=== PATIENT | female | born 1965 | race African-American/Black ===

== ENCOUNTER 2017-10-26 18:34 | Inpatient (IN) | payer MEDICARE ==
[~2017-10-26] VITALS: Ht 172.7 cm; Wt 94.1 kg
--- NOTE | 2017-10-26 18:34 | NUR ---
PATIENT TO BED 1 BY EMS
[2017-10-26 19:05] VITALS: BP 104/66
--- NOTE | 2017-10-26 19:10 | NUR ---
BIBA FOR SEVERE ABD FROM HOME PT DENIES N/V/D; SKIN IS PINK/WARM/DRY; AAOX4 WITH EVEN AND STEADY GAIT; LUNGS CLEAR BL; HR EVEN AND REGULAR; PT DENIES ANY FEVER, CP, SOB, OR COUGH AT THIS TIME; PATIENT STATES PAIN OF 10/10 AT THIS TIME; VSS; PATIENT POSITIONED FOR COMFORT; HOB ELEVATED; BEDRAILS UP X2; BED DOWN. ER MD MADE AWARE OF PT STATUS.
[2017-10-26] MEDS ORDERED: ACET-5629 PO (19:15)
[2017-10-26] MEDS ORDERED: METF1000 PO (19:15)
[2017-10-26] MEDS ORDERED: NACL 0.9% 1,000 ML IV ONE ×2 (19:50→23:35)
[2017-10-26] MEDS ORDERED: ONDANSETRON 4 MG/2 ML VIAL IVP ONE (19:50)
[2017-10-26] MEDS ORDERED: HYDROmorphone PFS 2 MG/ML SYR IVP ONE ×2 (19:50→23:35)
[2017-10-26 20:26] LABS: BASOPHILS # (AUTO) 0.3 K/uL (0.00-0.22); BASOPHILS % (AUTO) 3.9 % (0.0-2.0); EOSINOPHILS # (AUTO) 0.2 K/uL (0-0.4); EOSINOPHILS % (AUTO) 2.1 % (0.0-4.0); HEMOGLOBIN 11.7 g/dL (12.0-16.0); LYMPHOCYTES # (AUTO) 2.7 K/uL (2.5-16.5); LYMPHOCYTES % (AUTO) 37.3 % (20.5-51.1); MEAN CORPUSCULAR HEMOGLOBIN 27 pg (27-31); MEAN CORPUSCULAR HGB CONC 32 g/dL (33-37); MEAN CORPUSCULAR VOLUME 86 fL (80-94); MONOCYTES # (AUTO) 0.3 K/uL (0.8-1.0); MONOCYTES % (AUTO) 4.5 % (1.7-9.3); NEUTROPHILS # (AUTO) 3.8 K/uL (1.8-7.7); NEUTROPHILS % (AUTO) 52.2 % (42.2-75.2); PLATELET COUNT (AUTO) 204 K/uL (140-450); RED BLOOD CELL COUNT(AUTO) 4.31 MIL/uL (4.20-5.40); RED CELL DISTRIBUTION WIDTH 13.2 % (11.6-13.7); WHITE BLOOD COUNT (AUTO) 7.3 K/uL (4.8-10.8)
[2017-10-26 20:28] LABS: APPEARANCE,URINE CLOUDY (CLEAR); BILIRUBIN,URINE NEGATIVE (NEGATIVE); BLOOD, URINE NEGATIVE (NEGATIVE); COLOR,URINE YELLOW (YELLOW); LEUKOCYTE ESTERASE ,URINE NEGATIVE (NEGATIVE); NITRITE, URINE NEGATIVE (NEGATIVE); PH,URINE 5.5 (5.0-9.0); UGLUCOSE 3+ (NEGATIVE)
[2017-10-26 20:47] LABS: BARBITURATE, URINE NEG. ng/ml (NEG <=200); BENZODIAZEPINE, URINE NEG. ng/mL (NEG <=200); CANNABINOID, URINE NEG. ng/mL (NEG <=50); COCAINE, URINE NEG. ng/mL (NEG <=300); OPIATE, URINE NEG. ng/mL (NEG <=2000); PHENCYCLIDINE SCREEN,URINE NEG. ng/mL (NEG <=25)
[2017-10-26 20:52] LABS: ALBUMIN 3.1 g/dL (3.4-5.0); ANION GAP 13.9 (8-16); ASPARTATE AMINOTRANSFERASE 19 U/L (15-37); CARBON DIOXIDE 24.8 mmol/L (21-32); CHLORIDE 109 mmol/L (98-107); CREATININE 0.7 mg/dL (0.6-1.3); GFR ARICAN-AMERICAN 113 mL/min (>90); GLUCOSE 221 mg/dL (74-106); LIPASE 45 U/L (73-393); POTASSIUM 3.7 mmol/L (3.5-5.1); SODIUM SERUM 144 mmol/L (136-145); TOTAL BILIRUBIN 0.2 mg/dL (0.0-1.0); UREA NITROGEN, BLOOD 13 mg/dL (7-18)
[2017-10-26 21:17] LABS: RBC,URINE 0-5 (RARE) /HPF (0-5); WBC,URINE TOO MANY TO COUNT /HPF (0-5)
--- NOTE | 2017-10-26 21:30 | NUR ---
Patient appears to be resting comfortably in bed. Vital Signs within normal limits. Respirations even and unlabored.
--- NOTE | 2017-10-26 23:00 | NUR ---
Patient appears to be resting comfortably in bed. Vital Signs within normal limits. Respirations even and unlabored.
[2017-10-26] MEDS ORDERED: cefTRIAXone 1,000 MG VIAL ONE (23:42)
[2017-10-27] MEDS ORDERED: NACL 0.9% 1,000 ML IV SCH (00:08)
[2017-10-27] MEDS ORDERED: ACETAMINOPHEN 325 MG TAB PO PRN (00:10)
[2017-10-27] MEDS ORDERED: ONDANSETRON 4 MG/2 ML VIAL IVP PRN (00:10)
[2017-10-27] MEDS ORDERED: HYDROcodone/APAP 7.5/325 MG 1 TAB PO PRN (00:10)
--- NOTE | 2017-10-27 00:10 | NUR ---
# 16 FR NG tube placed to LEFT nare. Placement checked by auscultation of instilled air into stomach and aspiration of gastric contents. Tubing taped in place to prevent dislodging. Patient tolerated WELL.
[2017-10-27] MEDS ORDERED: MORPHINE SULFATE 2 MG/ML SYR IVP PRN (00:15)
[2017-10-27] MEDS ORDERED: INSULIN LISPRO SLIDING SCALE 100 UNITS/ML VIAL SUBQ PRN (00:20)
[2017-10-27] MEDS: DEXT 5% /NACL 0.9% 1,000 ML IV SCH ×4 (00:20→20:20)
[2017-10-27] MEDS ORDERED: DEXTROSE 50% 50 ML SYR IVP PRN (00:20)
--- NOTE | 2017-10-27 00:40 | NUR ---
Patient will be admitted to care of DR MOTA. Admited to TELE. Will go to [id number]. Belongings list completed. Report to JAMES HOSKINS.
[2017-10-27 01:00] VITALS: BP 124/82
--- NOTE | 2017-10-27 01:00 | NUR ---
PATIENT ADMITTED TO THE UNIT FROM ER. PATIENT AWAKE, ALERT AND ORIENTED. AMBULATORY. COMPLAINS OF 10/10 ABDOMINAL PAIN. NGT PRESENT IN THE LEFT NARE. PLACEMENT CONFIRMED THROUGH X-RAY. PLAN OF CARE DISCUSSED WITH PATIENT. PATIENT VERBALIZED UNDERSTANDING. BED IN LOWEST POSITION, SIDE RAILS UP AND CALL LIGHT WITHIN REACH WILL CONTINUE TO MONITOR.
--- NOTE | 2017-10-27 01:05 | NUR ---
PATIENT COMPLAINS THAT NG TUBE IS BOTHERING HER AND SHE WANTS TO PULL IT OUT. DR. CROSS PRESENT AT BEDSIDE. EDUCATED PATIENT OF IMPORTANCE OF HAVING AN NG TUBE. PATIENT VERBALIZED UNDERSTANDING BUT REINFORCEMENT IS NEEDED.
[2017-10-27] MEDS ORDERED: INSU100S22 SUBQ (01:29)
[2017-10-27] MEDS ORDERED: SIMV10TA1 PO (01:29)
[2017-10-27] MEDS ORDERED: GLIP10TA3 PO (01:29)
[2017-10-27] MEDS ORDERED: HYDROmorphone 1 MG/ML AMP IVP PRN (01:35)
[2017-10-27 01:43] LABS: CHOL/HDL RATIO 2.3 (1-4.5); FREE T4 (FREE THYROXINE) 0.76 ng/dL (0.76-1.46); MAGNESIUM 1.7 mg/dL (1.8-2.4); PHOSPHORUS 3.6 mg/dL (2.5-4.9); THYROID STIMULATING HORMONE 2.45 uIU/mL (0.34-3.74)
[2017-10-27] MEDS: HYDROmorphone PFS 2 MG/ML SYR IVP PRN ×6 (02:22→23:25)
--- NOTE | 2017-10-27 03:00 | NUR ---
PATIENT IS ASLEEP. NO SIGNS AND SYMPTOMS OF DISTRESS NOTED. BED IN LOWEST POSITION, SIDE RAILS UP AND CALL LIGHT WITHIN REACH. WILL CONTINUE TO MONITOR.
[2017-10-27 04:00] VITALS: BP 105/58
--- NOTE | 2017-10-27 04:00 | NUR ---
PATIENT HAS SEVERAL HEALED BERRIOS, AND SURGICAL SCARS FROM SURGERY. SHE REFUSED PICTURES FOR DOCUMENTATION OF WOUNDS.
--- NOTE | 2017-10-27 06:28 | NUR ---
PATIENT KEEPS SAYING THAT SHE WANTS TO TAKE OUT THE NG TUBE, AND THAT SHE DOESN'T WANT IT ANYMORE. EDUCATED HER ON THE IMPORTANCE OF THE NG TUBE AND ITS PURPOSE FOR HER TREATMENT. REINFORCEMENT NEEDED.
[2017-10-27] MEDS: BLOOD GLUCOSE MONITORING 1 DEV DEV FS SCH ×4 (06:36→20:09)
[2017-10-27 07:01] LABS: EOSINOPHILS # (AUTO) 0.1 K/uL (0-0.4); HEMOGLOBIN 12.2 g/dL (12.0-16.0); MONOCYTES # (AUTO) 0.4 K/uL (0.8-1.0); NEUTROPHILS # (AUTO) 5.5 K/uL (1.8-7.7)
[2017-10-27 07:02] LABS: BASOPHILS # (AUTO) 0.1 K/uL (0.00-0.22); BASOPHILS % (AUTO) 1.6 % (0.0-2.0); LYMPHOCYTES % (AUTO) 24.9 % (20.5-51.1); MEAN CORPUSCULAR HEMOGLOBIN 29 pg (27-31); MEAN CORPUSCULAR HGB CONC 34 g/dL (33-37); MEAN CORPUSCULAR VOLUME 86 fL (80-94); MONOCYTES % (AUTO) 5.2 % (1.7-9.3); NEUTROPHILS % (AUTO) 67.3 % (42.2-75.2); PLATELET COUNT (AUTO) 202 K/uL (140-450); RED BLOOD CELL COUNT(AUTO) 4.22 MIL/uL (4.20-5.40); WHITE BLOOD COUNT (AUTO) 8.1 K/uL (4.8-10.8)
--- NOTE | 2017-10-27 07:10 | NUR ---
RECEIVED PATIENT REPORT AT BEDSIDE. PATIENT AWAKE AND ORIENTED. PATIENT ON ROOM AIR. NO S/S OF DISTRESS OR SOB NOTED. PATIENT REPORTS OF ABD PAIN. PATIENT MEDICATED BY [employer] CAPTURE POWER PLANT MANAGER NURSE. WILL CONTINUE TO MONITOR. NGT IN PLACE IN THE LEFT NARES ON LOW INTERMITTENT SUCTION. IV LINE NOTED TO THE LEFT AC WITH IVF INFUSING WELL. PATIENT ON TELE MONITORING. BED LOWERED WITH CALL LIGHT WITHIN REACH. WILL CONTINUE TO MONITOR
--- NOTE | 2017-10-27 07:15 | NUR ---
PATIENT REPORT GIVEN TO MORNING NURSE AT BEDTIME. PATIENT IS IN STABLE CONDITION
[2017-10-27 07:28] LABS: CARBON DIOXIDE 28.7 mmol/L (21-32); CREATININE 0.7 mg/dL (0.6-1.3); POTASSIUM 3.7 mmol/L (3.5-5.1)
[2017-10-27 07:38] LABS: MAGNESIUM 1.5 mg/dL (1.8-2.4); PHOSPHORUS 4.2 mg/dL (2.5-4.9)
[2017-10-27 07:49] VITALS: BP 104/73
--- NOTE | 2017-10-27 08:25 | NUR ---
PATIENT HAS BEEN SCREENED AND CATEGORIZED HIGH NUTRITION RISK. PATIENT WILL BE SEEN WITHIN 1-2 DAYS OF ADMISSION. 10/27/17-10/28/[address]
[2017-10-27] MEDS ORDERED: BENZOCAINE 20% 57 GM CAN MC PRN (08:40)
[2017-10-27] MEDS: LACTOBACILLUS RHAMNOSUS GG 1 EACH CAP PO SCH (09:00)
[2017-10-27] MEDS: SIMVASTATIN 10 MG TAB PO SCH (09:00)
[2017-10-27] MEDS: DOCUSATE SODIUM 100 MG GELCAP PO SCH ×2 (09:00→20:23)
[2017-10-27] MEDS ORDERED: MAG SULF 2000 MG/WATER PREMIX 100 ML IV SCH (10:24)
--- NOTE | 2017-10-27 11:13 | NUR ---
FAXED INITIAL REVIEW TO [facility] [phone] PHONE OR [phone]
[2017-10-27 12:00] VITALS: BP 111/78
--- NOTE | 2017-10-27 15:00 | NUR ---
SMALL BOWEL FOLLOW THROUGH INITIATED
--- NOTE | 2017-10-27 15:23 | NUR ---
10/27/2017 RD INITIAL ASSESSMENT COMPLETED PLEASE REFER TO NUTRITION ASSESSMENT UNDER CARE ACTIVITY FOR ESTIMATED NUTRITIONAL NEEDS. PT TO REMAIN NPO UNTIL MEDICALLY APPROPRIATE TO ADVANCE ADVANCE DIET TOLERATED RD TO FOLLOW-UP IN 2-3 DAYS PATIENT IS HIGH RISK. JORGE JACOB, RD
[2017-10-27 16:00] VITALS: BP 118/82
--- NOTE | 2017-10-27 16:35 | NUR ---
PATIENT SEEN BY DR KEYES
--- NOTE | 2017-10-27 18:00 | NUR ---
RECEIVED ORDER FOR PATIENT TO GO TO HIGHER LEVEL OF CARE, WHERE SHE HAD THE BARIATRIC SURGERY IN SEPTEMBER. I CALLED MO AT [facility] AND SHE SAID SHE WOULD FIND OUT WHICH DOCTOR DID THE SURGERY AND AT WHAT HOSPITAL AND SHE WOULD CALL ME BACK. I CALLED BACK, AND LEFT 2 MESSAGES. NO CALL BACK FROM MO. I INFORMED DR. KEYES.
--- NOTE | 2017-10-27 18:52 | NUR ---
PATIENT PULLED OUT HER NGT DESPITE BEING WARNED OF POTENTIAL COMPLICATIONS THAT MAY ARISE. DR CROSS AWARE
--- NOTE | 2017-10-27 19:24 | NUR ---
PATIENT REPORT GIVEN AT BEDSIDE. PATIENT ENDORSED IN STABLE CONDITION
--- NOTE | 2017-10-27 19:30 | NUR ---
RECEIVED PT AWAKE COMPLAINING OF ABDOMINAL PAIN, VITAL SIGNS STABLE, MEDICATED PRN WITH DILAUDID IVP, IVF INFUSING WELL, MAINTAINED ON NPO, PT WANTS DR TO COME IN AND TALKED TO HER REGARDING HER DIAGNOSIS AND WANTS TO KNOW THE SPECIFIC AREA OF OBSTRUCTION, WILL LET DR CROSS KNOW ABOUT PT'S REQUEST, CALL LIGHT WITHIN REACH, FAMILY MEMBER AT BEDSIDE.
[2017-10-27 20:00] VITALS: BP 117/74
[2017-10-27] MEDS: PANTOPRAZOLE 40 MG INJ VIAL IVP SCH (20:18)
--- NOTE | 2017-10-27 20:20 | NUR ---
BLOOD SUGAR CHECKED WITH 75 RESULT, DR CROSS MADE AWARE OF PT'S REQUEST AND BLOOD SUGAR RESULT, WILL HOLD DUE LANTUS INSULIN, DUE MEDS GIVEN WITH TEACHING PROVIDED, PT SAID SHES VERY HUNGRY AND REQUESTING FOR CRISELDA CRACKERS, REINFORCED NPO STATUS, ALL NEEDS ATTENDED.
[2017-10-27] MEDS ORDERED: INSULIN LANTUS 100 UNITS/ML 10 ML VIAL SUBQ SCH (21:00)
--- NOTE | 2017-10-27 21:32 | NUR ---
PT REQUESTING FOR RESULT OF THE SBFT DONE TODAY, TALKED TO DR CROSS AND SAID THAT'S FINE, COPY OF SBFT PROVIDED TO PT.
[2017-10-27] MEDS ORDERED: ZOLPIDEM 5 MG TAB PO PRN (22:45)
--- NOTE | 2017-10-27 23:30 | NUR ---
PT COMPLAINING OF ABDOMINAL PAIN, VITAL SIGNS STABLE, MEDICATED PRN WITH DILAUDID IVP, CONTINUE TO MONITOR CLOSELY.
[2017-10-28] VITALS (7 sets, daily range): BP systolic 104–128; BP diastolic 63–84
[2017-10-28] MEDS: DEXT 5% /NACL 0.9% 1,000 ML IV SCH ×2 (02:49→09:40)
--- NOTE | 2017-10-28 03:10 | NUR ---
PT AMBULATED TO WITH STEADY GAIT, VOIDED FREELY, PT BACK TO BED FEELS LIKE HER SUGAR IS LOW, BLOOD SUGAR CHECKED WITH 78 RESULT, CRANBERRY JUICE AND JELLO PROVIDED, PAIN MEDICATION NOT YET DUE.
--- NOTE | 2017-10-28 03:15 | NUR ---
ENDORSE TO JAMES BERMAN FOR CONTINUITY OF CARE.
--- NOTE | 2017-10-28 03:20 | NUR ---
RECEIVED REPORT FROM DAMON, PATIENT IS SITTING IN BED, NO S/S OF DISTRESS NOTED, RESPIRATION EVEN AND UNLABORED, CALL IV PATENT AND INTACT, INFUSING D5 NS AT 150ML/HR, CALL LIGHT WITHIN REACH, SAFETY MEASURE ENSURED, WILL CONTINUE TO MONITOR.
[2017-10-28] MEDS: HYDROmorphone PFS 2 MG/ML SYR IVP PRN ×3 (03:39→13:10)
--- NOTE | 2017-10-28 03:45 | NUR ---
PATIENT CALLED AND STATED, PAIN 8/10. UPON ASSESSMENT, NO S/S OF DISTRESS NOTED, BP 106/71, HR 83, PAIN MEDICATION GIVEN ORDERED, CALL LIGHT WITHIN REACH, SAFETY MEASURE ENSURED, WILL CONTINUE TO MONITOR.
--- NOTE | 2017-10-28 05:18 | NUR ---
PATIENT IS SLEEPING, NO S/S OF DISTRESS NOTED, RESPIRATION EVEN AND UNLABORED, CALL LIGHT WITHIN REACH, SAFETY MEASURE ENSURED, WILL CONTINUE TO MONITOR.
[2017-10-28] MEDS: BLOOD GLUCOSE MONITORING 1 DEV DEV FS SCH ×2 (06:38→11:30)
--- NOTE | 2017-10-28 07:22 | NUR ---
ENDORSED PLAN OF CARE TO DAY SHIFT NURSE, PATIENT IS IN STABLE CONDITION.
--- NOTE | 2017-10-28 07:25 | NUR ---
RECEIVED REPORT FROM ALGORITHM DEVELOPER. PATIENT IS RESTING IN BED. AOX4. AMBULATORY. IV ON THE RIGHT HAND AND ON THE LEFT AC. PATENT AND INTACT. FLUSHING WELL. NO S/S OF RESPIRATORY DISTRESS OR DISCOMFORT NOTED. DISCUSSED PLAN OF CARE WITH PATIENT. PT VERBALIZED UNDERSTANDING. CALL LIGHT IS WITHIN REACH. WILL CONTINUE TO MONITOR.
[2017-10-28 07:37] LABS: BASOPHILS # (AUTO) 0.2 K/uL (0.00-0.22); BASOPHILS % (AUTO) 4.7 % (0.0-2.0); EOSINOPHILS # (AUTO) 0.1 K/uL (0-0.4); EOSINOPHILS % (AUTO) 3.4 % (0.0-4.0); HEMATOCRIT 35.3 % (36-48); HEMOGLOBIN 11.6 g/dL (12.0-16.0); LYMPHOCYTES # (AUTO) 1.9 K/uL (2.5-16.5); LYMPHOCYTES % (AUTO) 44.7 % (20.5-51.1); MEAN CORPUSCULAR HEMOGLOBIN 28 pg (27-31); MEAN CORPUSCULAR HGB CONC 33 g/dL (33-37); MEAN CORPUSCULAR VOLUME 86 fL (80-94); MONOCYTES # (AUTO) 0.3 K/uL (0.8-1.0); MONOCYTES % (AUTO) 6.2 % (1.7-9.3); NEUTROPHILS # (AUTO) 1.7 K/uL (1.8-7.7); PLATELET COUNT (AUTO) 195 K/uL (140-450); RED BLOOD CELL COUNT(AUTO) 4.09 MIL/uL (4.20-5.40); RED CELL DISTRIBUTION WIDTH 13.2 % (11.6-13.7); WHITE BLOOD COUNT (AUTO) 4.2 K/uL (4.8-10.8)
[2017-10-28 07:52] LABS: ANION GAP 10.8 (8-16); CARBON DIOXIDE 27.8 mmol/L (21-32); CREATININE 0.6 mg/dL (0.6-1.3); POTASSIUM 3.6 mmol/L (3.5-5.1)
[2017-10-28] MEDS: DOCUSATE SODIUM 100 MG GELCAP PO SCH (08:39)
[2017-10-28] MEDS: LACTOBACILLUS RHAMNOSUS GG 1 EACH CAP PO SCH (08:40)
[2017-10-28] MEDS: SIMVASTATIN 10 MG TAB PO SCH (08:40)
[2017-10-28] MEDS: PANTOPRAZOLE 40 MG INJ VIAL IVP SCH (08:43)
--- NOTE | 2017-10-28 17:32 | NUR ---
PATIENT DISCHARGE INSTRUCTIONS GIVEN. IV D/C. CATHETER TIP INTACT. ID WRISTBANDS REMOVED. PATIENT STABLE UPON DISCHARGE. ACCOMPANIED BY AND DAUGHTER.
[2017-10-31 06:16] LABS: FOLIC ACID 19.3 ng/mL (>3.0)
== END 2017-10-28 17:32 | disposition home or self-care (01) | DRG 247 ==
LOC: MED 18:34 → MTU 10-27 00:11
PROVIDERS: ADMIT Family Medicine Sports Medicine; ATTEND Family Medicine Sports Medicine
DX: K56.600 Partial intestinal obstruction, unspecified as to cause (principal); N17.0 Acute kidney failure with tubular necrosis; D68.59 Other primary thrombophilia; E11.65 Type 2 diabetes mellitus with hyperglycemia; E44.1 Mild protein-calorie malnutrition; I10 Essential (primary) hypertension; G89.29 Other chronic pain; E78.5 Hyperlipidemia, unspecified; N39.0 Urinary tract infection, site not specified; R80.9 Proteinuria, unspecified; D64.9 Anemia, unspecified; Z98.84 Bariatric surgery status; Z68.31 Body mass index [BMI] 31.0-31.9, adult
CPT/HCPCS: 36415; 71045; 74250; 80048; 80053; 80305; 81001; 82607; 82728; 82746; 82948; 83036; 83540; 83605; 83690; 83735; 83880; 84100; 84439; 84443; 84484; 85025; 85045; 85610; 85730; 87081; 87086; 93005; 93925; 93970; 96361; 96365; 96375; 96376; 99285; C9113; G0482; J0696; J1170; J1815; J2270; J2405; J3475; J7030; J7042; J7060; Q0092; Q9967

== ENCOUNTER 2018-03-14 12:05 | Emergency (ER) | payer MEDICAID, MEDICARE ==
[~2018-03-14] VITALS: Ht 172.7 cm; Wt 86.6 kg
[~2018-03-14 12:05] MED LIST: ACET-5629 PO; GLIP10TA3 PO; INSU100S22 SUBQ; METF1000 PO; SIMV10TA1 PO
[2018-03-14 12:09] VITALS: BP 119/82
--- NOTE | 2018-03-14 12:20 | NUR ---
PT AMBULATES TO BED 6
--- NOTE | 2018-03-14 12:21 | NUR ---
53/F BIB C/O VAGINAL PAIN X 3 WKS, N/V, CONSTIPATION, ABDOMINAL PAIN SINCE SHE HAD OLI CAVANAUGH ON 11/10/2017. HX; DM, GERD, TUMMY TUCK, NEUROPATHY, CHRONIC PAIN. AAOX4 WITH EVEN AND STEADY GAIT; LUNGS CLEAR BL. PATIENT STATES PAIN OF 8/10 AT THIS TIME. PATIENT POSITIONED FOR COMFORT; HOB ELEVATED; BEDRAILS UP X2; BED DOWN. TONYA CHIU MADE AWARE OF PT STATUS. Addendum: 03/14/18 at 1302 by [email or web address] PT STATED BM YESTERDAY; HARD STOOL.
--- NOTE | 2018-03-14 13:38 | NUR ---
DR WARREN EVALUATING AT BEDSIDE
[2018-03-14] MEDS ORDERED: KETOROLAC 60 MG/2 ML VIAL IM ONE ×3 (13:50→14:05)
[2018-03-14] MEDS ORDERED: KETOROLAC 30 MG/ML VIAL IVP ONE (13:55)
--- NOTE | 2018-03-14 14:06 | NUR ---
PT HAS HARD STICK. DC IV INSERTED & TORADOL [address] WARREN ORDERED PER ORAL. TORADOL [address] WARREN ORDERED PER ORAL.
--- NOTE | 2018-03-14 14:09 | NUR ---
LAB AT BEDSIDE.
[2018-03-14 14:19] LABS: BASOPHILS % (AUTO) 0.3 % (0.0-2.0); EOSINOPHILS # (AUTO) 0.1 K/uL (0-0.4); EOSINOPHILS % (AUTO) 2.5 % (0.0-4.0); HEMATOCRIT 41.9 % (36-48); HEMOGLOBIN 13.2 g/dL (12.0-16.0); LYMPHOCYTES # (AUTO) 2.7 K/uL (2.5-16.5); LYMPHOCYTES % (AUTO) 46.6 % (20.5-51.1); MEAN CORPUSCULAR HEMOGLOBIN 27 pg (27-31); MEAN CORPUSCULAR HGB CONC 32 g/dL (33-37); MEAN CORPUSCULAR VOLUME 85.9 fL (80-94); MONOCYTES # (AUTO) 0.3 K/uL (0.8-1.0); MONOCYTES % (AUTO) 4.6 % (1.7-9.3); NEUTROPHILS # (AUTO) 2.6 K/uL (1.8-7.7); PLATELET COUNT (AUTO) 204 K/uL (140-450); RED BLOOD CELL COUNT(AUTO) 4.87 MIL/uL (4.20-5.40); RED CELL DISTRIBUTION WIDTH 15.8 % (11.6-13.7); WHITE BLOOD COUNT (AUTO) 5.7 K/uL (4.8-10.8)
--- NOTE | 2018-03-14 14:22 | NUR ---
BACK FROM CT
[2018-03-14 14:32] LABS: APPEARANCE,URINE CLEAR (CLEAR); BLOOD, URINE NEGATIVE (NEGATIVE); COLOR,URINE YELLOW (YELLOW); LEUKOCYTE ESTERASE ,URINE NEGATIVE (NEGATIVE); NITRITE, URINE NEGATIVE (NEGATIVE); PH,URINE 5.5 (5.0-9.0); UGLUCOSE 3+ (NEGATIVE)
[2018-03-14 14:34] LABS: ALBUMIN 3.9 g/dL (3.4-5.0); ANION GAP 10.6 (8-16); CARBON DIOXIDE 28.7 mmol/L (21-32); CREATININE 0.7 mg/dL (0.6-1.3); POTASSIUM 4.3 mmol/L (3.5-5.1); TOTAL BILIRUBIN 0.4 mg/dL (0.0-1.0)
[2018-03-14 14:35] LABS: BILIRUBIN,URINE NEGATIVE (NEGATIVE)
--- NOTE | 2018-03-14 15:11 | NUR ---
PT STATED PAIN 10 AT THIS TIME
[2018-03-14 16:45] VITALS: BP 105/71
--- NOTE | 2018-03-14 16:45 | NUR ---
Patient discharged with v/s stable BY DR WARREN. Written and verbal after care instructions given and explained. Patient verbalized understanding. Ambulatory with steady gait. All questions addressed prior to discharge. Advised to follow up with PMD.
== END 2018-03-14 16:45 | disposition left against medical advice (07) ==
LOC: MED 12:05
DX: R10.13 Epigastric pain (principal); R11.2 Nausea with vomiting, unspecified; R30.9 Painful micturition, unspecified; E11.9 Type 2 diabetes mellitus without complications; K21.9 Gastro-esophageal reflux disease without esophagitis; Z79.899 Other long term (current) drug therapy; Z79.84 Long term (current) use of oral hypoglycemic drugs
CPT/HCPCS: 36415; 74176; 80053; 81003; 81025; 83690; 85025; 99285; J1885

== ENCOUNTER 2018-06-28 18:59 | Emergency (ER) | payer MEDICAID, MEDICARE ==
[~2018-06-28] VITALS: Ht 172.7 cm; Wt 86.6 kg
--- NOTE | 2018-06-28 19:00 | NUR ---
PT BIBA BLS TAKEN TO BED 3
[2018-06-28 19:04] VITALS: BP 149/93
--- NOTE | 2018-06-28 19:30 | NUR ---
Dr. Cox evaluating patient at bedside.
--- NOTE | 2018-06-28 19:31 | NUR ---
PATIENT PRESENTS TO ED WITH ABDOMINAL PAIN SINCE 11/10/17. PT STATES WAS SEEN AT [facility].PATIENT STATES +N/V/D; SKIN IS PINK/WARM/DRY; AAOX4 WITH EVEN AND STEADY GAIT; LUNGS CLEAR BL; HR EVEN AND REGULAR; PT DENIES ANY FEVER, CP, SOB, OR COUGH AT THIS TIME; PATIENT STATES PAIN OF 7/10 AT THIS TIME; VSS; PATIENT POSITIONED FOR COMFORT; HOB ELEVATED; BEDRAILS UP X2; BED DOWN. ER MD MADE AWARE OF PT STATUS.
[2018-06-28] MEDS ORDERED: ONDANSETRON 4 MG/2 ML VIAL IVP ONE (19:50)
[2018-06-28] MEDS ORDERED: NACL 0.9% 1,000 ML IV ONE (19:50)
[2018-06-28] MEDS ORDERED: fentaNYL 0.05 MG/ML VIAL IVP ONE (19:50)
[2018-06-28 20:18] LABS: BASOPHILS % (AUTO) 0.3 % (0.0-2.0); EOSINOPHILS # (AUTO) 0.2 K/uL (0-0.4); EOSINOPHILS % (AUTO) 2.5 % (0.0-4.0); HEMATOCRIT 40.6 % (36-48); HEMOGLOBIN 13.2 g/dL (12.0-16.0); LYMPHOCYTES % (AUTO) 43.3 % (20.5-51.1); MEAN CORPUSCULAR HEMOGLOBIN 28 pg (27-31); MEAN CORPUSCULAR HGB CONC 33 g/dL (33-37); MEAN CORPUSCULAR VOLUME 87.2 fL (80-94); MONOCYTES # (AUTO) 0.3 K/uL (0.8-1.0); MONOCYTES % (AUTO) 4.3 % (1.7-9.3); NEUTROPHILS # (AUTO) 3.4 K/uL (1.8-7.7); NEUTROPHILS % (AUTO) 49.6 % (42.2-75.2); PLATELET COUNT (AUTO) 222 K/uL (140-450); RED BLOOD CELL COUNT(AUTO) 4.66 MIL/uL (4.20-5.40); RED CELL DISTRIBUTION WIDTH 13.1 % (11.6-13.7); WHITE BLOOD COUNT (AUTO) 6.8 K/uL (4.8-10.8)
--- NOTE | 2018-06-28 20:36 | NUR ---
PT RETURN FROM CT
[2018-06-28 21:01] LABS: ALBUMIN 4.2 g/dL (3.4-5.0); ANION GAP 11.5 (8-16); CARBON DIOXIDE 29.1 mmol/L (21-32); CREATININE 0.6 mg/dL (0.6-1.3); POTASSIUM 3.6 mmol/L (3.5-5.1); TOTAL BILIRUBIN 0.3 mg/dL (0.0-1.0)
[2018-06-28 21:55] VITALS: BP 138/91
--- NOTE | 2018-06-28 21:55 | NUR ---
Patient discharged with v/s stable. Written and verbal after care instructions given and explained. Patient alert, oriented and verbalized understanding of instructions. Ambulatory with steady gait. All questions addressed prior to discharge. ID band removed. Patient advised to follow up with PMD. Rx of ZOFRAN AND TRAMADOL given. Patient educated on indication of medication including possible reaction and side effects. Opportunity to ask questions provided and answered.
[2018-06-28 22:15] LABS: PROTHROMBIN TIME 9.3 secs (10.8-13.4)
== END 2018-06-28 21:55 | disposition home or self-care (01) ==
LOC: MED 18:59
DX: R10.9 Unspecified abdominal pain (principal); R11.2 Nausea with vomiting, unspecified; R19.7 Diarrhea, unspecified; R06.02 Shortness of breath; E11.9 Type 2 diabetes mellitus without complications; K21.9 Gastro-esophageal reflux disease without esophagitis; Z79.899 Other long term (current) drug therapy; Z79.84 Long term (current) use of oral hypoglycemic drugs
CPT/HCPCS: 36415; 74176; 80053; 83690; 85025; 85610; 85730; 96361; 96374; 96375; 99285; J2405; J3010; J7030

== ENCOUNTER 2020-02-13 18:36 | Emergency (ER) | payer BC, MEDICARE ==
[~2020-02-13] VITALS: Ht 165.1 cm; Wt 79.4 kg
--- NOTE | 2020-02-13 18:36 | NUR ---
Patient BIBA BLS, transferred to bed 4. RN evaluating patient at bedside.
[2020-02-13 18:42] VITALS: BP 118/84
--- NOTE | 2020-02-13 18:58 | NUR ---
LAB AT BEDSIDE
--- NOTE | 2020-02-13 19:15 | NUR ---
PT CAME IN TO ER WITH C/O ABDOMINAL PAIN. PT STATED SHE HAS CHRONIC PAIN DUE TO HAVING A TUMMY TUCK IN 2018. PT IS ALERT AND ABLE TO ANSWER QUESTIONS APPROPRIATELY. PT PAIN LEVEL IS 7/10 AT THIS TIME. SAFETY MEASURES IN PLACE. WILL CONTINUE TO MONITOR.
--- NOTE | 2020-02-13 19:15 | NUR ---
PT IS REFUSING TO URINATE AT THIS TIME. ERMD MADE AWARE
[2020-02-13 19:16] LABS: BASOPHILS % (AUTO) 0.4 % (0.0-2.0); EOSINOPHILS # (AUTO) 0.1 K/uL (0-0.4); HEMATOCRIT 36.2 % (36-48); HEMOGLOBIN 11.8 g/dL (12.0-16.0); LYMPHOCYTES # (AUTO) 2.5 K/uL (2.5-16.5); LYMPHOCYTES % (AUTO) 37.8 % (20.5-51.1); MEAN CORPUSCULAR HEMOGLOBIN 30 pg (27-31); MEAN CORPUSCULAR HGB CONC 32 g/dL (33-37); MEAN CORPUSCULAR VOLUME 91.9 fL (80-94); MONOCYTES # (AUTO) 0.5 K/uL (0.8-1.0); MONOCYTES % (AUTO) 8.2 % (1.7-9.3); NEUTROPHILS # (AUTO) 3.4 K/uL (1.8-7.7); NEUTROPHILS % (AUTO) 51.6 % (42.2-75.2); PLATELET COUNT (AUTO) 285 K/uL (140-450); RED BLOOD CELL COUNT(AUTO) 3.94 MIL/uL (4.20-5.40); RED CELL DISTRIBUTION WIDTH 15.5 % (11.6-13.7); WHITE BLOOD COUNT (AUTO) 6.6 K/uL (4.8-10.8)
--- NOTE | 2020-02-13 19:25 | NUR ---
XRAY AT BEDSIDE
[2020-02-13 19:30] LABS: ACETAMINOPHEN 15.2 ug/ml (10-30); ALBUMIN 3.5 g/dL (3.4-5.0); ANION GAP 16.7 (8-16); CARBON DIOXIDE 22.4 mmol/L (21-32); CREATININE 0.9 mg/dL (0.6-1.3); POTASSIUM 3.1 mmol/L (3.5-5.1); SALICYLATE 3.7 mg/dL (2.8-20.0); TOTAL BILIRUBIN 0.4 mg/dL (0.0-1.0)
--- NOTE | 2020-02-13 20:02 | NUR ---
PT REFUSED MEDICATION, TYLENOLM IBUPROFEN AND OR TORADOL. PT STATED SHE TOOK MEDICATION PRIOR TO COMING IN TO ER. PT IS DROWSY. PT STATED SHE HAS A RIDE HOME.
--- NOTE | 2020-02-13 20:03 | NUR ---
PT REFUSED TO GIVE A U/A SPECIMEN. ANTONETTED MADE AWARE.
[2020-02-13 20:14] VITALS: BP 118/84
--- NOTE | 2020-02-13 20:14 | NUR ---
Patient discharged with v/s stable. Written and verbal after care instructions given and explained. Patient verbalized understanding. Ambulatory with steady gait. All questions addressed prior to discharge. Advised to follow up with PMD. PT STATED SHE HAS A RIDE HOME. PT INSTRCUTED TO FOLLOW UP WITH PAIN MANAGMENT.
--- NOTE | 2020-02-13 20:30 | NUR ---
PT FAMILY REFUSED TO PICK HER UP, PT RECIEVED A TAXI VOUCHER
== END 2020-02-13 20:04 | disposition home or self-care (01) ==
LOC: MED 18:36
DX: R10.9 Unspecified abdominal pain (principal); E11.9 Type 2 diabetes mellitus without complications; K21.9 Gastro-esophageal reflux disease without esophagitis; Z79.899 Other long term (current) drug therapy; Z76.5 Malingerer [conscious simulation]
CPT/HCPCS: 36415; 74022; 80053; 85025; 93005; 99285; G0480; G0482

== ENCOUNTER 2021-05-03 22:36 | Emergency (ER) | payer BC ==
[~2021-05-03] VITALS: Ht 165.1 cm; Wt 70.3 kg
[2021-05-03 22:36] VITALS: BP 93/56
[2021-05-03] MEDS ORDERED: MIDAZOLAM 2 MG/2 ML VIAL IM ONE (22:45)
[2021-05-03] MEDS ORDERED: HALOPERIDOL IM 5 MG/ML VIAL IM ONE (22:45)
[2021-05-03] MEDS ORDERED: HALOPERIDOL IM 5 MG/ML VIAL ONE (22:45)
[2021-05-03] MEDS ORDERED: MIDAZOLAM 5 MG/1 ML VIAL ONE (22:47)
[2021-05-03 23:25] LABS: BASOPHILS % (AUTO) 0.3 % (0.0-2.0); EOSINOPHILS % (AUTO) 0.9 % (0.0-4.0); HEMATOCRIT 35.2 % (36-48); HEMOGLOBIN 11.6 g/dL (12.0-16.0); LYMPHOCYTES # (AUTO) 2.1 K/uL (2.5-16.5); LYMPHOCYTES % (AUTO) 40.5 % (20.5-51.1); MEAN CORPUSCULAR HEMOGLOBIN 30 pg (27-31); MEAN CORPUSCULAR HGB CONC 33 g/dL (33-37); MEAN CORPUSCULAR VOLUME 92.3 fL (80-94); MONOCYTES # (AUTO) 0.3 K/uL (0.8-1.0); MONOCYTES % (AUTO) 5.4 % (1.7-9.3); NEUTROPHILS # (AUTO) 2.8 K/uL (1.8-7.7); NEUTROPHILS % (AUTO) 52.9 % (42.2-75.2); PLATELET COUNT (AUTO) 279 K/uL (140-450); RED BLOOD CELL COUNT(AUTO) 3.81 MIL/uL (4.20-5.40); RED CELL DISTRIBUTION WIDTH 16.6 % (11.6-13.7); WHITE BLOOD COUNT (AUTO) 5.2 K/uL (4.8-10.8)
[2021-05-03 23:43] LABS: ALBUMIN 3.3 g/dL (3.4-5.0); ANION GAP 14.3 (8-16); ASPARTATE AMINOTRANSFERASE 56 U/L (15-37); CARBON DIOXIDE 24.8 mmol/L (21-32); CHLORIDE 107 mmol/L (98-107); CREATININE 0.6 mg/dL (0.6-1.3); GFR ARICAN-AMERICAN 133 mL/min (>90); GLUCOSE 239 mg/dL (74-106); POTASSIUM 3.1 mmol/L (3.5-5.1); SODIUM SERUM 143 mmol/L (136-145); TOTAL BILIRUBIN 0.9 mg/dL (0.0-1.0); UREA NITROGEN, BLOOD 14 mg/dL (7-18)
[2021-05-03 23:44] LABS: ACETAMINOPHEN < 0.5 ug/ml (10-30); SALICYLATE < 2.8 mg/dL (2.8-20.0)
[2021-05-04] MEDS ORDERED: POTASSIUM CHLORIDE 20% 40 MEQ/15 ML UDC PO ONE (01:45)
[2021-05-04 02:13] VITALS: BP 110/70
== END 2021-05-04 02:13 ==
LOC: MED 22:36
DX: S00.212A Abrasion of left eyelid and periocular area, initial encounter (principal); S09.90XA Unspecified injury of head, initial encounter; F31.9 Bipolar disorder, unspecified; I10 Essential (primary) hypertension; V89.2XXA Person injured in unspecified motor-vehicle accident, traffic, initial encounter; Y93.89 Activity, other specified; Y92.89 Other specified places as the place of occurrence of the external cause; Y99.8 Other external cause status
CPT/HCPCS: 70450; 80053; 85025; 96372; 99284; G0480; G0482; J1630; J2250